=== PATIENT | female | born 1965 | race Caucasian/White ===

== ENCOUNTER 2016-11-19 18:56 | Emergency (ER) | payer OTHER ==
[~2016-11-19] VITALS: Ht 175.3 cm; Wt 135.0 kg
[~2016-11-19 18:56] MED LIST: PRISTIQ50 MG PO; PROTONIX40 MG PO; ZOLOFT50 MG PO
[2016-11-19] MEDS ORDERED: PREDNISONE20 MG PO (20:45)
[2016-11-19 21:15] VITALS: BP 125/79
== END 2016-11-19 21:16 | disposition home or self-care (01) ==
LOC: EME 18:56
DX: L29.9 Pruritus, unspecified (principal); D89.89 Other specified disorders involving the immune mechanism, not elsewhere classified
CPT/HCPCS: 99281; 99284; J7512